=== PATIENT | female | born 1975 | race Caucasian/White ===

== ENCOUNTER → 2018-08-20 | Day surgery (SDC) | payer OTHER ==
--- NOTE | 2018-08-24 17:18 | PATH ---
Cytology Non-Gynecological Report Patient Name: RHEA LAI [facility]. Rec. #: [id number] /Age/Gender: 1975 (Age: 43) / F Account: [id number] Location: MAMMOGRAPHY Taken: 08/20/2018 Received: 08/23/2018 Reported: 08/24/2018 Physicians: Darron Grijalva M.D. Specimen(s) Received LEFT BREAST CYST ASPIRATION Clinical History Left breast cyst Final Diagnosis BREAST, LEFT, CYST, ULTRASOUND GUIDED FINE NEEDLE ASPIRATION: SATISFACTORY FOR EVALUATION. NO MALIGNANT CELLS IDENTIFIED. CYSTIC BREAST LESION WITH APOCRINE METAPLASIA. APOCRINE METAPLASTIC CELLS IN THE BACKGROUND OF PROTEINACEOUS DEBRIS. Electronically Signed Donna Galdamez M.D. Gross Description Approximately 20 cc of clear fluid received fixed in 50% alcohol. One cytofunnel prepared and Pap stained. One cellblock prepared.
== END | disposition home or self-care (01) ==
LOC: FRADUS-SUR 12:59
PROVIDERS: ATTEND Surgery Surgical Oncology
PROC: 0H9U3ZX Drainage of Left Breast, Percutaneous Approach, Diagnostic (ICD-10-PCS; principal; 2018-08-20)
DX: N60.02 Solitary cyst of left breast (principal)
CPT/HCPCS: 76942-TC; 88173; 88305-TC